=== PATIENT | female | born 1965 | race Caucasian/White ===

== ENCOUNTER 2016-08-11 08:02 | Emergency (ER) | payer OTHER ==
[~2016-08-11] VITALS: Ht 167.6 cm; Wt 72.2 kg
[~2016-08-11 08:02] MED LIST: ADVAIR; ADVAIR 100-501 EACH IH; ADVAIR 100/501 DISK IH; AMITRIPTYLINE H10 MG PO; AMOXICILLIN875 MG PO; ATARAX,VISTARIL25 MG PO; BUSPIRONE HCL15 MG PO; CLINDAMYCIN HC300 MG PO; CLONAZEPAM0.5 MG PO; EFFEXOR XR150 MG PO; EFFEXOR XR75 MG PO; ENDOCET 5-3251 EACH PO; ESTRADIOL0.5 MG PO; EXALGO8 MG PO; FISH OIL CONC1000 MG PO; FLAXSEED OIL1000 MG PO; FLEXERIL10 MG PO; GEODON40 MG PO; IBUPROFEN800 MG PO; KEFLEX500 MG PO; LEVAQUIN500 MG PO; MEDROL DOSEPAK4 MG PO; METHADONE10 MG PO; MOTRIN600 MG PO; NAPROSYN-EC500 MG PO; NAPROXEN500 MG PO; NEXIUM40 MG PO; NORCO 5/3251 TABLET PO; NUCYNTA100 MG PO; OMEPRAZOLE40 M1 PO; OXYCONTIN30 MG PO; PERCOCET 10/1 TABLET PO; PRILOSEC20 MG PO; PROVENTIL,2.5 MG/0.5 IH; ROBITUSSIN AC,T10 ML PO; SAVELLA50 MG PO; SEROQUEL300 MG PO; SEROQUEL400 MG PO; SEVELLA PO; SONATA10 MG PO; TIZANIDINE HCL4 MG PO; TRAMADOL HCL50 MG PO; TRAZODONE HCL100 MG PO; TRAZODONE HCL300 MG PO; TRAZODONE HCL50 MG PO; ULTRAM ER100 MG PO; ULTRAM50 MG PO; VALIUM5 MG PO; VENTOLIN HFA18 GM IH; VITAMIN D1000 INTUN PO; XANAX0.5 MG PO; ZANTAC150 MG PO; ZOFRAN ODT4 MG PO; ZOFRAN ODT8 MG PO; [UNRECOGNIZED DRUG - OTHER] PO; lipozene
[2016-08-11 08:25] LABS: ADD MIUA? NO; BILIRUBIN NEGATIVE; BLOOD NEGATIVE; COLOR STRAW ((YELLOW)); GLUCOSE (STRIP) NEGATIVE; KETONES NEGATIVE; LEUKOCYTES NEGATIVE; NITRITE NEGATIVE; PROTEIN (STRIP) NEGATIVE; SPECIFIC GRAVITY 1.002 (1.000-1.030); UCUL ADDED? NO; UROBILINOGEN 0.2 MG/DL (0.2-1.0)
[2016-08-11 08:55] LABS: HEMATOCRIT 38.6 % (36.0-46.0); MCH 32.1 PG (29.0-34.0); MCHC 34.7 G/DL (30.0-36.0); MCV 92.6 FL (83-99); MEAN PLAT.VOLUME 10.9 uM^3 (9.5-12.4); PLATELET COUNT 175 K/uL (156-360); RBC DIS.WIDTH-CV 12.1 % (11.8-14.6); RBC DIS.WIDTH-SD 41.4 % (39-53); RED BLOOD COUNT 4.17 M/uL (3.80-5.20); WHITE BLOOD COUNT 6.6 K/uL (4.1-10.2)
[2016-08-11 09:07] LABS: CHLORIDE 106 mEq/L (99-109); POTASSIUM 2.9 mEq/L (3.7-5.4); SODIUM 141 mEq/L (136-147)
[2016-08-11 09:09] LABS: GLUCOSE 107 mg/dL (70-99)
[2016-08-11 09:10] LABS: ANION GAP 11 MEQ/L (2-14)
[2016-08-11 09:11] LABS: TOTAL BILIRUBIN 0.4 mg/dL (0.0-1.0)
[2016-08-11 09:13] LABS: ALKALINE PHOSPHATASE 77 IU/L (3-129); GFR ESTIMATE (CALCULATED) > 59 mL/min/
[2016-08-11 09:14] LABS: UREA NITROGEN (BUN) 7 mg/dL (9-23)
[2016-08-11] MEDS ORDERED: K-DUR10 MEQ PO (11:08)
[2016-08-11] MEDS ORDERED: BENTYL20 MG PO (11:08)
[2016-08-11] MEDS ORDERED: COLACE100 MG PO (11:08)
[2016-08-11] MEDS ORDERED: ELIMITE 5% CREA60 GM TP (11:14)
[2016-08-11] MEDS ORDERED: BACTROBAN NASAL1 G1 BOTH NARES (11:14)
[2016-08-11 11:19] VITALS: BP 153/79
== END 2016-08-11 11:21 | disposition home or self-care (01) ==
LOC: EME 08:02
DX: K59.00 Constipation, unspecified (principal); R10.30 Lower abdominal pain, unspecified; F11.20 Opioid dependence, uncomplicated; E87.6 Hypokalemia; J45.909 Unspecified asthma, uncomplicated; F31.9 Bipolar disorder, unspecified; G89.29 Other chronic pain; M79.7 Fibromyalgia; B19.20 Unspecified viral hepatitis C without hepatic coma; M06.9 Rheumatoid arthritis, unspecified; F17.210 Nicotine dependence, cigarettes, uncomplicated
CPT/HCPCS: 71020; 74020; 80053; 81003; 85027; 93005; 99281; 99284; Q0177

== ENCOUNTER 2016-10-15 15:43 | Emergency (ER) | payer OTHER ==
[~2016-10-15] VITALS: Ht 167.6 cm; Wt 67.5 kg
[~2016-10-15 15:43] MED LIST changes: +BACTROBAN NASAL1 G1 BOTH NARES; +BENTYL20 MG PO; +COLACE100 MG PO; +ELIMITE 5% CREA60 GM TP; +K-DUR10 MEQ PO
[2016-10-15 16:17] LABS: HEMATOCRIT 48.4 % (36.0-46.0); MCHC 33.9 G/DL (30.0-36.0); MCV 94.5 FL (83-99); RBC DIS.WIDTH-CV 12.1 % (11.8-14.6); RBC DIS.WIDTH-SD 42.2 % (39-53); RED BLOOD COUNT 5.12 M/uL (3.80-5.20); WHITE BLOOD COUNT 5.3 K/uL (4.1-10.2)
[2016-10-15 17:05] LABS: TROP-I INTERPRETATION NEGATIVE; TROPONIN-I < 0.01 ng/mL (0.0-0.30)
[2016-10-15 17:28] LABS: CHLORIDE 107 mEq/L (99-109); POTASSIUM 4.1 mEq/L (3.7-5.4); SODIUM 144 mEq/L (136-147)
[2016-10-15 17:30] LABS: GLUCOSE 101 mg/dL (70-99)
[2016-10-15 17:31] LABS: ANION GAP 14 MEQ/L (2-14)
[2016-10-15 17:34] LABS: GFR ESTIMATE (CALCULATED) > 59 mL/min/
[2016-10-15 17:35] LABS: UREA NITROGEN (BUN) 10 mg/dL (9-23)
[2016-10-15 18:00] LABS: MEAN PLAT.VOLUME 11.4 uM^3 (9.5-12.4); PLAT.SUFFICIENCY ADEQUATE; PLATELET COUNT 182 K/uL (156-360)
[2016-10-15] MEDS ORDERED: ATARAX,VISTARIL25 MG PO (20:30)
[2016-10-15] MEDS ORDERED: MUCUS ER600 MG PO (20:30)
[2016-10-15] MEDS ORDERED: ZOFRAN ODT4 MG PO (20:38)
[2016-10-15] MEDS ORDERED: LICE CREAM RIN120 ML TP (20:38)
[2016-10-15] MEDS ORDERED: FLONASE16 G1 BOTH NARES (20:48)
[2016-10-15 21:05] VITALS: BP 150/85
== END 2016-10-15 21:06 | disposition home or self-care (01) ==
LOC: EME 15:43
DX: L29.9 Pruritus, unspecified (principal); J43.9 Emphysema, unspecified; R11.0 Nausea; B19.20 Unspecified viral hepatitis C without hepatic coma; M79.7 Fibromyalgia; J45.909 Unspecified asthma, uncomplicated; F20.9 Schizophrenia, unspecified; F17.200 Nicotine dependence, unspecified, uncomplicated
CPT/HCPCS: 71020; 80048; 80076; 82140; 84484; 85027; 93005; 94640; 99281; 99284; Q0177

== ENCOUNTER 2017-09-11 04:23 | Observation (INO) | payer OTHER ==
[~2017-09-11] VITALS: Ht 167.6 cm; Wt 71.8 kg
[~2017-09-11 04:23] MED LIST changes: +FLONASE16 G1 BOTH NARES; +LICE CREAM RIN120 ML TP; +MUCUS ER600 MG PO
[2017-09-11 05:22] LABS: HEMATOCRIT 36.4 % (36.0-46.0); HEMOGLOBIN 12.8 G/DL (11.9-15.5); MCH 33.1 PG (29.0-34.0); MCHC 35.2 G/DL (30.0-36.0); MCV 94.1 FL (83-99); PLATELET COUNT 130 K/uL (156-360); RBC DIS.WIDTH-CV 13.2 % (11.8-14.6); RBC DIS.WIDTH-SD 45.1 % (39-53); RED BLOOD COUNT 3.87 M/uL (3.80-5.20); WHITE BLOOD COUNT 8.1 K/uL (4.1-10.2)
[2017-09-11 05:26] LABS: CHLORIDE 103 mEq/L (99-109); POTASSIUM 3.5 mEq/L (3.7-5.4); SODIUM 136 mEq/L (136-147)
[2017-09-11 05:28] LABS: GLUCOSE 120 mg/dL (70-99)
[2017-09-11 05:31] LABS: SERUM ETHYL ALCOHOL < 10 mg/dL
[2017-09-11 05:32] LABS: CREATININE 0.8 mg/dL (0.6-1.3); GFR ESTIMATE (CALCULATED) > 59 mL/min/
[2017-09-11 05:33] LABS: UREA NITROGEN (BUN) 11 mg/dL (9-23)
[2017-09-11 12:39] LABS: AMPHETAMINE NEGATIVE (500 ng/mL); BENZODIAZEPINES NEGATIVE (150 ng/mL); COCAINE PRESUMPTIVE POSITIVE (150 ng/mL); METHADONE PRESUMPTIVE POSITIVE (200 ng/mL); METHAMPHETAMINE NEGATIVE (500 ng/mL); OPIATES (MORPHINE) NEGATIVE (100 ng/mL); PHENCYCLIDINE NEGATIVE (25 ng/mL); THC CANNABINOIDS NEGATIVE (50 ng/mL); TRICYCLIC ANTIDEPRESSANTS PRESUMPTIVE POSITIVE (300 ng/mL)
[2017-09-11 12:40] LABS: BARBITURATES NEGATIVE (200 ng/mL); BUPRENORPHINE NEGATIVE (10 ng/mL); OXYCODONE NEGATIVE (100 ng/mL); PROPOXYPHENE NEGATIVE (300 ng/mL)
[2017-09-11 17:56] LABS: APPEARANCE TURBID ((CLEAR)); BILIRUBIN NEGATIVE; BLOOD NEGATIVE; COLOR YELLOW ((YELLOW)); GLUCOSE (STRIP) NEGATIVE; KETONES 5; LEUKOCYTES NEGATIVE; NITRITE NEGATIVE; PROTEIN (STRIP) 30; SPECIFIC GRAVITY 1.023 (1.000-1.030)
[2017-09-11 17:58] LABS: RED BLOOD CELLS NONE SEEN /HPF (0-5)
[2017-09-11 17:59] LABS: AMORPHOUS URATES CRYSTALS 4+; BACTERIA RARE /HPF; EPITHELIAL CELLS NONE SEEN /HPF; MUCUS NONE SEEN /LPF; UCUL ADDED? NO; WHITE BLOOD CELLS RARE /HPF (0-5)
[2017-09-11] MEDS ORDERED: OXYCODONE-APAP1 EACH PO (18:01)
[2017-09-11] MEDS ORDERED: QUETIAPINE FUM100 MG PO (18:02)
[2017-09-11] MEDS ORDERED: HYSINGLA ER60 MG PO (18:02)
[2017-09-11] MEDS ORDERED: VENTOLIN HFA18 GM IH (18:03)
[2017-09-11] MEDS ORDERED: DESYREL100 MG PO (18:03)
[2017-09-11] MEDS ORDERED: ADVAIR 100/501 DISK IH (18:03)
[2017-09-11] MEDS ORDERED: MELOXICAM15 MG PO (18:03)
[2017-09-11] MEDS ORDERED: EFFEXOR75 MG PO (18:04)
[2017-09-11] MEDS ORDERED: CYCLOBENZAPRINE10 MG PO (18:04)
[2017-09-11] MEDS ORDERED: FISH OIL 1,0001 EAC7 PO (18:08)
[2017-09-11] MEDS ORDERED: MULTIVITAMIN1 EAC2 PO (18:09)
[2017-09-11 18:50] LABS: TOTAL PROTEIN 7.3 g/dL (6.4-8.3)
[2017-09-11 18:52] LABS: TOTAL BILIRUBIN 0.5 mg/dL (0.0-1.0)
[2017-09-11 18:53] LABS: ALKALINE PHOSPHATASE 89 IU/L (3-129)
[2017-09-11 18:55] LABS: AST (GOT) 45 IU/L (2-34); DIRECT BILIRUBIN 0.4 mg/dL (0.0-0.3)
[2017-09-11 18:56] LABS: ACETAMINOPHEN (TYLENOL) < 10 mcg/mL (10-30); ALT (GPT) 30 IU/L (3-49); SALICYLATE < 5.0 MG/DL (15-30)
[2017-09-11 19:25] VITALS: BP 99/55
[2017-09-12] VITALS: BP 100/57
[2017-09-12 06:14] LABS: ALBUMIN 3.2 G/DL (3.2-4.8); ALKALINE PHOSPHATASE 63 IU/L (3-129); ALT (GPT) 21 IU/L (3-49); AST (GOT) 29 IU/L (2-34); CHLORIDE 110 MEQ/L (99-109); CREATININE 0.6 MG/DL (0.6-1.3); GFR ESTIMATE (CALCULATED) > 59 mL/min/; GLUCOSE 101 mg/dL (70-99); SODIUM 141 MEQ/L (136-147); TOTAL BILIRUBIN 0.4 MG/DL (0.0-1.0); TOTAL PROTEIN 6.1 G/DL (6.4-8.3); UREA NITROGEN (BUN) 12 mg/dL (9-23)
[2017-09-12 06:19] LABS: BASOPHIL (%) 0.5 % (0-1); EOSINOPHIL (%) 2.7 % (0-5); EOSINOPHIL COUNT 0.1 K/uL (0-0.3); HEMATOCRIT 32.1 % (36.0-46.0); IMMATURE GRANULOCYTE (%) 0.3 % (0.0-0.7); LYMPHOCYTE (%) 37.4 % (15-42); LYMPHOCYTE COUNT 1.4 K/uL (1.0-2.8); MCH 32.1 PG (29.0-34.0); MCHC 33.3 G/DL (30.0-36.0); MCV 96.4 FL (83-99); MONOCYTE (%) 9.4 % (3-12); MONOCYTE COUNT 0.4 K/uL (0-0.8); NEUTROPHIL (%) 49.7 % (45-76); NEUTROPHIL COUNT 1.9 K/uL (1.8-6.4); PLATELET COUNT 115 K/uL (156-360); RBC DIS.WIDTH-CV 13.3 % (11.8-14.6); RED BLOOD COUNT 3.33 M/uL (3.80-5.20); WHITE BLOOD COUNT 3.7 K/uL (4.1-10.2)
[2017-09-12 06:23] LABS: HEMOGLOBIN 10.7 G/DL (11.9-15.5)
[2017-09-12 08:10] VITALS: BP 105/58
[2017-09-12 11:34] VITALS: BP 113/61
[2017-09-12 15:08] VITALS: BP 107/62
== END 2017-09-12 18:25 | disposition home or self-care (01) ==
LOC: EME 04:23 → 4SOUTH 17:41 → EDOF 17:41 → ENRESERV 17:59 → 4SOUTH 19:23
PROVIDERS: Internal Medicine; Nurse Practitioner Family; Physician Assistant
DX: G92 Toxic encephalopathy (principal); T40.1X1A Poisoning by heroin, accidental (unintentional), initial encounter; T40.5X1A Poisoning by cocaine, accidental (unintentional), initial encounter; F11.10 Opioid abuse, uncomplicated; F14.10 Cocaine abuse, uncomplicated; F10.10 Alcohol abuse, uncomplicated; G89.29 Other chronic pain; B19.20 Unspecified viral hepatitis C without hepatic coma; D64.9 Anemia, unspecified; F41.9 Anxiety disorder, unspecified; F31.9 Bipolar disorder, unspecified; M79.7 Fibromyalgia; J44.9 Chronic obstructive pulmonary disease, unspecified; F17.200 Nicotine dependence, unspecified, uncomplicated; W06.XXXA Fall from bed, initial encounter; Y92.003 Bedroom of unspecified non-institutional (private) residence as the place of occurrence of the external cause
CPT/HCPCS: 70450; 71045; 72125; 80048; 80053; 80076; 81003; 83605; 84999; 85025; 85027; 93005; 94640; 94640 76; 94799; 99202; 99281; 99285; G0378; G0480; J1644; J2310; J2405; J7030; J7040